=== PATIENT | female | born 1995 | race Caucasian/White ===

== ENCOUNTER 2020-09-13 22:29 | Emergency (ER) | payer SELFPAY ==
[~2020-09-13] VITALS: Ht 154.9 cm; Wt 58.0 kg
[2020-09-13 23:05] VITALS: BP 105/46
== END 2020-09-14 00:13 | disposition home or self-care (01) ==
LOC: ER 22:29
DX: F45.8 Other somatoform disorders (principal); F41.9 Anxiety disorder, unspecified
CPT/HCPCS: 99283